=== PATIENT | female | born 1985 | race Caucasian/White ===

== ENCOUNTER 2017-04-14 15:31 | Inpatient (IN) | payer BC ==
[~2017-04-14] VITALS: Ht 152.4 cm; Wt 96.2 kg
[2017-04-14 15:42] VITALS: Ht 152.4 cm; Wt 96.2 kg
[2017-04-14 15:43] VITALS: BP 110/73
[2017-04-14] MEDS ORDERED: PREN1TAB17 PO (15:44)
--- NOTE | 2017-04-14 17:07 | RADRPT ---
PROCEDURE: US evaluation of placenta. CLINICAL INDICATION: Vaginal bleeding. TECHNIQUE: Multiple sonographic images of the gravid uterus were obtained utilizing perkins-scale jr ging. Sagittal and transverse images were obtained. The images were reviewed on a PACS workstation . The placenta was evaluated. COMPARISON: No prior studies are available for comparison. FINDINGS: There is a single live intrauterine . heart rate is 154 beats per minute. Position is cephalic and placenta is posterior grade III. There is no placenta previa or abruption. IMPRESSION: 1. Placenta is posterior grade III with no abruption or previa. RPTAT: QQ .Zane Wilkerson MD, MD Date Time Electronically viewed and signed by .Zane Wilkerson MD, on 04/14/2017 17:07 .R/
[2017-04-14 18:07] LABS: BASOPHILS % 0.4 % (0.0-2.0); EOSINOPHILS # 0.1 10^3/ul (0.0-0.5); EOSINOPHILS % 0.8 % (0.0-7.0); HEMATOCRIT 32.2 % (37.0-47.0); HEMOGLOBIN 11.3 g/dl (12.0-16.0); LYMPHOCYTES # 1.6 10^3/ul (0.8-2.9); LYMPHOCYTES % 15.6 % (15.0-51.0); MEAN CORPUSCULAR HEMOGLOBIN 29.6 pg (29.0-33.0); MEAN CORPUSCULAR HGB CONC 35.1 g/dl (32.0-37.0); MEAN CORPUSCULAR VOLUME 84.3 fl (82.0-101.0); MEAN PLATELET VOLUME 11.7 fl (7.4-10.4); MONOCYTE # 0.7 10^3/ul (0.3-0.9); MONOCYTES % 7.2 % (0.0-11.0); NEUTROPHIL # 7.7 10^3/ul (1.6-7.5); PLATELET COUNT 144 10^3/UL (140-415); RED BLOOD COUNT 3.82 10^6/ul (4.20-5.40); RED CELL DISTRIBUTION WIDTH 15.1 % (11.5-14.5); WHITE BLOOD COUNT 10.2 10^3/ul (4.8-10.8)
[2017-04-14 18:57] LABS: ADD UMIC YES; UR ASCORBIC ACID NEGATIVE (NEGATIVE); UR BACTERIA MODERATE /HPF (NONE SEEN); UR BILIRUBIN (Dip) NEGATIVE (NEGATIVE); UR BLOOD (Dip) 3+ mg/dL (NEGATIVE); UR CLARITY CLEAR (CLEAR); UR COLOR YELLOW (YELLOW); UR GLUCOSE (Dip) NEGATIVE (NEGATIVE); UR KETONES (Dip) NEGATIVE (NEGATIVE); UR LEUKOCYTE ESTERASE (Dip) NEGATIVE Leu/ul (NEGATIVE); UR NITRITE (Dip) NEGATIVE (NEGATIVE); UR RBC 4 /HPF (0-5); UR SPECIFIC GRAVITY (Dip) 1.008 (1.003-1.030); UR TOTAL PROTEIN (Dip) NEGATIVE (NEGATIVE); UR UROBILINOGEN (Dip) NEGATIVE (NEGATIVE)
--- NOTE | 2017-04-14 22:53 | TRIAGE ---
OB Triage Datetime Report Generated by CPN: 04/14/2017 22:53 Datetime: 04/14/2017 22:47 Assessment Type: Admission Assessment Vaginal Bleeding: None Maternal Assessment Level of Consciousness: Fully Conscious DTR's/Clonus: DTRs 2+; No Clonus Headache: Denies Blurred Vision: No Respiratory Effort: Unlabored; Regular Rhythm; Equal Expansion Breath Sounds, Left: Clear and Equal Breath Sounds, Right: Clear and Equal Nausea/Vomiting: Denies RUQ Epigastric Pain: Denies Facial Edema: None Fall Risk Assessment History of Falling: (0) No Secondary Diagnosis: (0) No Ambulatory Aid: (0) Bedrest/Nurse Assist Gait: (0) Normal/Bedrest/Immobile Mental Status: (0) Oriented to Own Ability Labor Evaluation Frequency: 5-6 Duration (sec)2399: 35-60 Quality: Mild Pattern: Normal: <= 5 Contractions in 10 Minutes Resting Tone Etta: Relaxed Pain Assessment Pain Scale: 1 Pain Presence: Intermittent Pain Type: N/A Pain Location: Abdomen Pain Goal: 2 Datetime: 04/14/2017 22:00 Labor Evaluation Frequency: 2-15 Monitor Mode: External Duration (sec)2399: 50-100 Quality: Mild Pattern: Normal: <= 5 Contractions in 10 Minutes Resting Tone Etta: Relaxed Heart Rate FHR Baseline Rate: 125 Monitor Mode: External US Variability: Moderate 6-25 bpm Accelerations: 15X15 Decelerations: None Category: Category I Pain Assessment Pain Scale: 2 Pain Presence: Intermittent Pain Type: Cramping Pain Location: Abdomen; Back Datetime: 04/14/2017 21:00 Labor Evaluation Frequency: 4-12 Monitor Mode: External Duration (sec)2399: 40-70 Quality: Mild Pattern: Normal: <= 5 Contractions in 10 Minutes Resting Tone Etta: Relaxed Heart Rate FHR Baseline Rate: 125 Monitor Mode: External US Variability: Moderate 6-25 bpm Accelerations: 15X15 Decelerations: None Category: Category I Datetime: 04/14/2017 20:24 Vaginal Exam Dilatation (cms): 0.0 Effacement (%): 0 Station: -4 Exam By: BE Vaginal Bleeding: None Cervix, Consistency: Firm Cervix, Position: Midposition Presentation 'A': Unable to Assess Datetime: 04/14/2017 20:00 Labor Evaluation Frequency: IRREGULAR Monitor Mode: External Duration (sec)2399: 40-60 Quality: Mild Pattern: Normal: <= 5 Contractions in 10 Minutes Resting Tone Etta: Relaxed Heart Rate FHR Baseline Rate: 135 Monitor Mode: External US Variability: Moderate 6-25 bpm Accelerations: 15X15 Decelerations: None Category: Category I Pain Assessment Pain Scale: 2 Pain Presence: Intermittent Pain Type: Cramping Pain Location: Abdomen; Back Datetime: 04/14/2017 18:49 Comments: PATIENT REGISTERED UNDER DR. CONWAY, IS DR PATEL PATIENT AND IS SCHEDULED ON 04/26 FOR REPEAT C/S - WILL CALL DR. CALERO Datetime: 04/14/2017 17:06 Stage of : OB Triage Heart Rate FHR Baseline Rate: 135 Monitor Mode: External US Variability: Moderate 6-25 bpm Accelerations: 15X15 Decelerations: None Category: Category I Datetime: 04/14/2017 16:29 Labor Evaluation Frequency: 1-4 Monitor Mode: External Duration (sec)2399: 30-60 Quality: Mild Pattern: Normal: <= 5 Contractions in 10 Minutes Resting Tone Etta: Relaxed Datetime: 04/14/2017 16:08 Stage of : OB Triage Labor Evaluation Frequency: 1-4 Monitor Mode: External Duration (sec)2399: 30-60 Pattern: Normal: <= 5 Contractions in 10 Minutes Resting Tone Etta: Relaxed Heart Rate FHR Baseline Rate: 135 Monitor Mode: External US Variability: Moderate 6-25 bpm Accelerations: 15X15 Decelerations: None Category: Category I Pain Presence: None/Denies Pain Type: N/A Membrane Status: Intact Datetime: 04/14/2017 16:02 Vaginal Exam Dilatation (cms): 0.0 Datetime: 04/14/2017 15:47 Stage of : OB Triage Assessment Type: Triage Maternal Assessment Level of Consciousness: Fully Conscious DTR's/Clonus: DTRs 2+; No Clonus Headache: Denies Blurred Vision: No Respiratory Effort: Unlabored; Regular Rhythm; Equal Expansion Breath Sounds, Left: Clear and Equal Breath Sounds, Right: Clear and Equal Nausea/Vomiting: Denies RUQ Epigastric Pain: Denies Lower Extremities Edema: None Degree: None Upper Extremities Edema: None Degree: None Facial Edema: None Temperature Route: Oral Fall Risk Assessment History of Falling: (0) No Secondary Diagnosis: (0) No Ambulatory Aid: (0) Bedrest/Nurse Assist IV Therapy: (0) No Gait: (0) Normal/Bedrest/Immobile Mental Status: (0) Oriented to Own Ability Fall Score: 0 Fall Risk Score Definition: No Risk: No action required Monitor Mode: External Duration (sec)2399: X1 Intensity IUP (mmHg): 30-40 Resting Tone Etta: Relaxed Heart Rate FHR Baseline Rate: 125 Monitor Mode: External US Variability: Moderate 6-25 bpm Accelerations: 15X15 Decelerations: None Category: Category I Pain Assessment Pain Scale: 0 Pain Presence: None/Denies Pain Type: N/A Datetime: 04/14/2017 15:46 Time of Arrival: 04/14/2017 22:20 EGA: 37.4 Arrived By: Ambulatory Arrived From: Home Chief Complaint: C/O SPOTTING STARTED AT 1300 TODAY Movement: Present Contractions: Denies/Absent Rupture of Membranes: Denies Vaginal Bleeding: Scant Vaginal Discharge: Present Recent Sexual Intercouse: Denies Abdominal Trauma: Not Applicable Patient Complaints: Other Time Provider Notified: 04/14/2017 16:14 Provider Notified: DR. CONWAY Initial Plan: [email or web address], CALL
[2017-04-14] MEDS ORDERED: CEFAZOLIN 2 GM/50 ML (PMX) 50 ML IV SCH (23:30)
[2017-04-14] MEDS ORDERED: OXYTOCIN 30 UNITS/LR 500 ML IV SCH (23:30)
[2017-04-14] MEDS ORDERED: OXYTOCIN 30 UNITS/LR 500 ML IV PRN (23:30)
[2017-04-14] MEDS ORDERED: MISOPROSTOL 200 MCG TAB PR PRN (23:30)
[2017-04-14] MEDS ORDERED: CARBOPROST 250 MCG INJ IM PRN (23:30)
[2017-04-14] MEDS ORDERED: METHYLERGONOVINE 0.2 MG INJ IM PRN (23:30)
[2017-04-14 23:41] LABS: INR 0.98
[2017-04-14 23:42] LABS: PARTIAL THROMBOPLASTIN TIME 26.7 Sec (25.0-35.0)
[2017-04-15] MEDS ORDERED: LACTATED RINGER'S 1,000 ML IV SCH
[2017-04-15] MEDS ORDERED: LACTATED RINGER'S 1,000 ML IV ONE
[2017-04-15] MEDS ORDERED: PHENYLephrine (100 MCG/ML) 5ML SYG ONE ×2 (00:20→00:44)
[2017-04-15] MEDS ORDERED: morphine SULFATE/PF (10 MG/10 ML) INJ ONE (00:20)
--- NOTE | 2017-04-15 01:36 | SIPON ---
Date/Time of Note Date/Time of Note DATE: 04/15/17 TIME: 01:33 Operative Report Preoperative Diagnosis 32 yo iup at 37 wks 5 days ga, in labor, previous CD X 3, desires elective repeat CD with permanent surgical sterilization Postoperative Diagnosis malpresent/ footling breech Operation/Procedure Performed repeat low transverse CD, bilateral tubal ligation, myomectomy Surgeon see signature line assistant sales director Dr. Oconnor Anesthesia: spinal Estimated blood loss: other (500) Transfusion Required none Specimen portion of right and left fallopian tube uterine fibroid Grafts/Implants none Complications none FABBY DE GUZMAN MD Apr 15, 2017 01:36
[2017-04-15] MEDS ORDERED: NALOXONE (0.4 MG/ML) INJ IV PRN (02:00)
[2017-04-15] MEDS ORDERED: CARBOPROST 250 MCG INJ IM PRN (02:00)
[2017-04-15] MEDS ORDERED: HYDROmorphONE 0.5 MG/0.5 ML SYG IV PRN ×2 (02:00)
[2017-04-15] MEDS ORDERED: MISOPROSTOL 200 MCG TAB PR PRN (02:00)
[2017-04-15] MEDS ORDERED: METHYLERGONOVINE 0.2 MG INJ IM PRN (02:00)
[2017-04-15] MEDS ORDERED: OXYTOCIN 30 UNITS/LR 500 ML IV PRN (02:00)
[2017-04-15] MEDS ORDERED: LANOLIN 7 GM TUBE TOP PRN (02:00)
[2017-04-15] MEDS ORDERED: METOCLOPRAMIDE 10 MG INJ IV PRN (02:00)
[2017-04-15] MEDS ORDERED: FENTAnyl 50 MCG/ML VIAL IV PRN ×2 (02:00)
[2017-04-15] MEDS ORDERED: KETOROLAC 30 MG INJ IV PRN (02:00)
[2017-04-15] MEDS ORDERED: DIPHENHYDRAMINE 50 MG INJ IV PRN ×2 (02:00)
[2017-04-15] MEDS ORDERED: ONDANSETRON 4 MG INJ IV PRN ×2 (02:00)
[2017-04-15] MEDS ORDERED: MEPERIDINE 25 MG INJ IV PRN (02:00)
[2017-04-15] MEDS ORDERED: OXYCODONE/ACETAMINOPHEN (5/325) TAB PO PRN ×2 (02:00)
[2017-04-15] MEDS: LACTATED RINGER'S 1,000 ML IV SCH ×4 (02:30→21:51)
[2017-04-15] MEDS: CEFAZOLIN 2 GM/50 ML (PMX) 50 ML IV SCH ×3 (02:32→17:14)
--- NOTE | 2017-04-15 03:08 | PREOPHP ---
DATE OF ADMISSION: 04/14/2017 HISTORY OF PRESENT ILLNESS: Ms. Gracy Hill is a 32-year-old 4, para 3, EDC 05/01/2017 i ntrauterine at 37 weeks and 5 days' gestational age presented to triage complaining of vag inal spotting and contractions. She had a significant history of x3 previous and desires elective repeat delivery with bilateral tubal sterilization. [facility] care took place at [facility]. PAST MEDICAL HISTORY: None. MEDICATIONS: vitamins. PAST SURGICAL HISTORY: Times 3 previous C-sections. OBSTETRICAL HISTORY: Times 3 C-sections. The patient tested positive for Down syndrome in the mate rna serum alphafetoprotein in the first trimester with positive history of fibroid uterus. GYNECOLOGIC HISTORY: Twelve, regular, 3 to 4 days. Denies any sexually transmitted diseases. Sexu ally active with 1 partner. SOCIAL HISTORY: Denies any smoking, drugs or alcohol. FAMILY HISTORY: None. REVIEW OF SYSTEMS: All within normal except history of present illness. PHYSICAL EXAMINATION: HEENT: Within normal. LUNGS: CTA bilateral. CARDIOVASCULAR: S1, S2, regular rhythm. ABDOMEN: Gravid, nontender. Mild lower abdominal tenderness. Negative CVA. EXTREMITIES: Negative edema. No calf tenderness. PELVIC: Vaginal exam 150, -3 with positive spotting. heart tracing category 1. Tocometer re gular contractions. ASSESSMENT: A 32-year-old 4, para 3, intrauterine at 37 weeks and 5 days' gestati onal age, in labor. Previous section x3, desires elective repeat delivery with bi lateral tubal sterilization. PLAN: Consent for repeat delivery with bilateral tubal ligation. Risks, benefits and alte rnatives explained. All questions were answered. Dictated By: FABBY MCGREGOR/ILA Conf#: [id number] DID#: [id number]
[2017-04-15 04:25] VITALS: BP 124/64; PULSE 80; RESP 19
[2017-04-15] MEDS: KETOROLAC 30 MG INJ IV PRN ×3 (04:25→17:58)
[2017-04-15] MEDS ORDERED: IBUPROFEN 600 MG TAB PO SCH (06:00)
[2017-04-15] MEDS ORDERED: OXYTOCIN 30 UNITS/LR 500 ML BAG IV ONE (07:00)
[2017-04-15 07:30] VITALS: BP 125/68; PULSE 82; RESP 18
[2017-04-15] MEDS: SENNA/DOCUSATE NA (8.6MG/50MG) TAB PO SCH ×2 (08:43→21:01)
--- NOTE | 2017-04-15 13:03 | OPR ---
DATE OF OPERATION: 04/15/2017 PREOPERATIVE DIAGNOSES: A 32-year-old 4, para 3, intrauterine at 37 weeks and 5 d ays gestational age, in labor, previous x3, desires elective repeat delivery with permanent surgical sterilization. POSTOPERATIVE DIAGNOSES: A 32-year-old 4, para 3, intrauterine at 37 weeks and 5 days gestational age, in labor, previous x3, desires elective repeat delivery wit h permanent surgical sterilization with malpresentation/footling breech with leiomyomatous sauk-[place]attle alvaro. PROCEDURE: Repeat low transverse delivery via Pfannenstiel incision with bilateral tubal l igation, Allie method, uterine myomectomy. SURGEON: Juan Luis Joy MD PROCESS SAFETY ENGINEER: Dr. Oconnor ANESTHESIA: Spinal. COMPLICATIONS: None. ESTIMATED BLOOD LOSS: 500 mL. FINDINGS: A viable male, Apgars 8 and 9 respectively at 1 and 5 minutes, weight 3565 grams, normal tubes and ovaries. A 3 cm intramural anterior fibroid in the lower uterine segment of the uterus. DESCRIPTION OF PROCEDURE: After explaining the risks, benefits and alternatives with the patient, c onsent signed in chart, the patient was taken to the operating room where spinal anesthesia was foun d to be adequate. She was then prepared and draped in normal sterile fashion in dorsal supine posit ion with a leftward tilt. A Pfannenstiel skin incision was then made with a scalpel and carried to the underlying layer of the fascia. The fascia was incised in the midline and the incision was exte nded laterally with Krishnamurthy scissors. The superior aspect of the fascial incision was then grasped wit h curved clamps, elevated and the underlying rectus muscles dissected off bluntly. Attention was th en turned to the inferior aspect of the incision which in similar fashion was grasped, tented up wit h curved clamps and the rectus muscles dissected off bluntly. The rectus muscles were in midline and the peritoneum identified, tented up and entered sharply with Metzenbaum scissors. The peritoneal incision was extended superiorly and inferiorly with good visualization of bladder. The bladder blade was then inserted and the vesicouterine peritoneum identified, grasped with pickups an d entered sharply with Metzenbaum scissors. This incision was extended laterally and the bladder fl ap created digitally. The bladder blade was then reinserted and the lower segment incised in transv erse fashion with a scalpel. The uterine incision was extended laterally. The bladder blade was re moved and the infant's feet were delivered to the level of the scapula, the right arm was draped acr oss the chest and delivered. Similarly, the left arm was draped across the chest and delivered. Th e head was delivered atraumatically. The nose and mouth were suctioned and cord clamped and cut. T he infant was handed off to awaiting vice president global digital marketing. The placenta was then removed. The uterus exter iorized and cleared of all clots and debris. At this point, the fibroid at the lower uterine segmen t was incised at the uterine incision site and sent to pathology. The uterine incision was then rep aired with 1-0 chromic in a running locked fashion. A second layer of same suture was used for imbr ication obtaining excellent hemostasis. At this point, a [place] clamp was used to grasp the left t ube approximately 4 cm from the cornual region. A 3 cm segment of tube was ligated with a free tie. Similarly, the right fallopian tube was ligated. The uterus was returned to the abdomen. The gut ters were cleared of all clots. Again, good hemostasis was noted from both tubal ligation sites. T he peritoneum and rectus abdominis muscles were reapproximated with 3-0 Vicryl. The fascia was reap proximated with 0 Vicryl in a running fashion. The subcutaneous tissue was reapproximated with 2-0 plain gut in a running fashion. The skin was closed with nathanael. The patient tolerated procedure well. Sponge, lap and needle counts were correct. The patient was taken to recovery room in stable condition. Dictated By: JUAN LUIS MCGREGOR/ILA Conf#: [id number] DID#: [id number]
[2017-04-15 16:00] VITALS: BP 113/62; PULSE 98; RESP 18
[2017-04-15 19:30] VITALS: BP 105/66; PULSE 94; RESP 18
[2017-04-16] MEDS: KETOROLAC 30 MG INJ IV PRN (00:55)
[2017-04-16 01:00] VITALS: BP 107/64; PULSE 92; RESP 18
[2017-04-16 03:30] VITALS: BP 119/62; PULSE 97; RESP 18
[2017-04-16] MEDS: IBUPROFEN 600 MG TAB PO SCH ×4 (05:57→23:56)
[2017-04-16 08:55] VITALS: BP 73/53; PULSE 121; RESP 18
[2017-04-16] MEDS: SENNA/DOCUSATE NA (8.6MG/50MG) TAB PO SCH ×2 (09:41→21:00)
[2017-04-16 11:22] VITALS: BP 120/69; PULSE 101; RESP 18
--- NOTE | 2017-04-16 11:25 | QN ---
Documentation Comment Patient was seen and evaluated awake alert oriented 3 negative complaints positive ambulation tired diet positive flatulence Vital signs stable afebrile Abdomen soft nontender uterine fundus firm below umbilicus dressing clean and dry Extremity negative edema no calf tenderness Assessment status post repeat transverse delivery with bilateral tubal ligation/myomectomy Postop day 1 stable afebrile Plan iron supplement Encourage ambulation FABBY DE GUZMAN MD Apr 16, 2017 11:25
--- NOTE | 2017-04-16 11:34 | CONS ---
Date/Time of Note Date/Time of Note DATE: 04/16/17 TIME: 11:32 Consultation Date/Type/Reason Admit Date/Time Apr 14, 2017 at 22:00 Initial Consult Date 04/16/17 Type of Consultation: Anesthesiology Reason for Consultation Follow up 24 HR Interval Summary Free Text/Dictation Pt seen and examined at bedside is POD#1 s/p repeat c/s with BTL. Pt received spinal duramorph for post op pain control. Currently states pain is controlled adequately. No N/V/D/C/[place]/Numbness in extremities. Will follow. Constitutional: improved, no complaints Exam/Review of Systems Vital Signs Vitals Vital Signs Date Time Temp Pulse Resp B/P Pulse Ox O2 Delivery O2 Flow Rate FiO2 04/16/17 11:22 97.9 101 18 120/69 Room Air 04/15/17 23:50 97 21 Intake and Output 04/15/17 04/15/17 04/16/17 15:00 23:00 07:00 Intake Total 1050 ml 425 ml Output Total 800 ml 2300 ml 1650 ml Balance 250 ml -1875 ml -1650 ml Results Result Diagram: 04/14/17 1700 Medications Medications Current Medications Lactated Ringer's (Lr) 1,000 ml @ 125 mls/hr Q8H IV Last administered on 04/15 21:51; Admin Dose 125 MLS/HR; Start 04/15/17 at 01:36 Oxycodone/ Acetaminophen (Percocet (5/ 325)) 1 tab Q4H PRN PO PAIN LEVEL 4-6; Start 04/15/17 at 02:00 Oxycodone/ Acetaminophen (Percocet (5/ 325)) 2 tab Q4H PRN PO PAIN LEVEL 7-10; Start 04/15/17 at 02:00 Simethicone (Mylicon) 160 mg Q8H PRN PO DISTENSION/GAS/BLOATING; Start at 02:00 Senna/Docusate Sodium 1 tab 1 tab BID PO Last administered on 04/16/17 09:41 ; Admin Dose 1 TAB; Start 04/15/17 at 09:00 Oxytocin/Lactated Ringer's 500 ml @ 0 mls/hr ONCE PRN IV For Hemorrhage Management; Start 04/15/17 at 02:00 Methylergonovine Maleate (Methergine) 0.2 mg ONCE PRN IM VAGINAL BLEEDING; Start 04/15/17 at 02:00 Carboprost Tromethamine (Hemabate) 250 mcg ONCE PRN IM VAGINAL BLEEDING; Start 04/15/17 at 02:00 Misoprostol (Cytotec) 1,000 mcg ONCE PRN [place] VAGINAL BLEEDING; Start 04/15/17 at 02:00 Ibuprofen (Motrin) 600 mg Q6 PO Last administered on 04/16/17t 11:22; Admin Dose 600 MG; Start 04/16/17 at 06:00 Ferrous Sulfate (Ferrous Sulfate (Ec)) 325 mg BID PO ; Start 04/16/17 at 21:00 ASHLEY MURPHY Apr 16, 2017 11:34
[2017-04-16 11:41] LABS: BASOPHILS % 0.3 % (0.0-2.0); EOSINOPHILS # 0.1 10^3/ul (0.0-0.5); HEMATOCRIT 27.2 % (37.0-47.0); HEMOGLOBIN 9.2 g/dl (12.0-16.0); LYMPHOCYTES # 1.1 10^3/ul (0.8-2.9); LYMPHOCYTES % 11.8 % (15.0-51.0); MEAN CORPUSCULAR HEMOGLOBIN 28.6 pg (29.0-33.0); MEAN CORPUSCULAR HGB CONC 33.8 g/dl (32.0-37.0); MEAN CORPUSCULAR VOLUME 84.5 fl (82.0-101.0); MEAN PLATELET VOLUME 11.6 fl (7.4-10.4); MONOCYTE # 0.6 10^3/ul (0.3-0.9); MONOCYTES % 6.9 % (0.0-11.0); NEUTROPHIL # 7.2 10^3/ul (1.6-7.5); PLATELET COUNT 142 10^3/UL (140-415); RED BLOOD COUNT 3.22 10^6/ul (4.20-5.40); RED CELL DISTRIBUTION WIDTH 15.6 % (11.5-14.5); WHITE BLOOD COUNT 9.1 10^3/ul (4.8-10.8)
[2017-04-16 16:30] VITALS: BP 111/66; PULSE 84; RESP 17
[2017-04-16 19:45] VITALS: BP 105/57; PULSE 88; RESP 18
[2017-04-16] MEDS: FERROUS SULFATE (EC) 325 MG TAB PO SCH (21:29)
[2017-04-17 03:50] VITALS: BP 111/65; PULSE 77; RESP 18
[2017-04-17] MEDS: IBUPROFEN 600 MG TAB PO SCH ×4 (06:00→23:35)
[2017-04-17 08:20] VITALS: BP 105/75; PULSE 82; RESP 18
[2017-04-17] MEDS: SENNA/DOCUSATE NA (8.6MG/50MG) TAB PO SCH ×2 (09:00→21:22)
[2017-04-17] MEDS: FERROUS SULFATE (EC) 325 MG TAB PO SCH ×2 (09:51→21:22)
[2017-04-17 16:15] VITALS: BP 106/62; PULSE 85; RESP 18
--- NOTE | 2017-04-17 20:58 | QN ---
Documentation Comment Patient was seen and evaluated awake alert oriented 3 negative complaints positive ambulation toleratin diet positive flatulence Vital signs stable afebrile Abdomen soft nontender uterine fundus firm below umbilicus c/d/i Extremity negative edema no calf tenderness Assessment status post repeat transverse delivery with bilateral tubal ligation/myomectomy Postop day 2 stable afebrile Plan iron supplement Encourage ambulation FABBY DE GUZMAN MD Apr 17, 2017 20:58
[2017-04-18 04:00] VITALS: BP 109/73; PULSE 77; RESP 20
[2017-04-18] MEDS: IBUPROFEN 600 MG TAB PO SCH ×4 (05:39→23:49)
[2017-04-18 08:00] VITALS: BP 113/60; PULSE 83; RESP 19
[2017-04-18] MEDS: FERROUS SULFATE (EC) 325 MG TAB PO SCH ×2 (08:59→20:34)
[2017-04-18] MEDS: SENNA/DOCUSATE NA (8.6MG/50MG) TAB PO SCH ×2 (09:00→20:34)
--- NOTE | 2017-04-18 11:36 | PD.PPDC ---
PROGRAM ADVISOR Discharge Instruction Condition Patient Condition: Good Diet Diet: Resume Regular Diet Activity/Restrictions Activity: Normal Activity May Shower Restrictions: No Exercising No Lifting No Driving No Sexual Activity Nothing in the Vagina No [employer] No Tampons, douche Follow-up Follow-up with Physician: 3, Day/Days Provider Information: to remove nathanael Return to clinic for ELECTRONICS PROCESSING SUPERVISOR Instructions: Fever greater than 101 Chills Worsening abdominal pain Excessive Vaginal Bleeding More than 2 pads per hour Unable to tolerate diet OB Instructions: Breast Tenderness Depression Blurried Vision Headache Surgical Instructions: Incisional Drainage Incisional Redness FABBY DE GUZMAN MD Apr 18, 2017 11:36
[2017-04-18 16:30] VITALS: BP 119/76; PULSE 78; RESP 18
[2017-04-18 19:50] VITALS: BP 117/71; PULSE 85; RESP 19
[2017-04-19 04:00] VITALS: BP 113/62; PULSE 76; RESP 18
[2017-04-19] MEDS: IBUPROFEN 600 MG TAB PO SCH ×2 (05:41→11:28)
--- NOTE | 2017-04-19 06:26 | DS ---
DATE OF ADMISSION: 04/14/2017 DATE OF DISCHARGE: 04/18/2017 PRIMARY DIAGNOSES: A 32-year-old 4, para 3, intrauterine at 37 weeks and 5 days g estational age, in labor, previous section x3, desires elective repeat delivery wi th permanent surgical sterilization. PROCEDURE: Repeat low transverse delivery with bilateral tubal ligation, Allie method an d uterine myomectomy. CONDITION ON DISCHARGE: Stable. ACTIVITY: None per vagina, no heavy lifting x6 weeks. DIET: Regular. MEDICATIONS ON DISCHARGE: 1. Motrin. 2. Percocet. 3. Iron. 4. Colace. DISCHARGE SUMMARY: Ms. Gracy Hill is a 32-year-old 4, para 4, status post repeat low tr ansverse delivery with bilateral tubal ligation and uterine myomectomy on 04/15/2017. She had a viable male, Apgars 8 and 9 respectively at one and five minutes, weight 3565 grams. She had an uneventful postop day 1, 2, and 3. Her incision is clean, dry and intact. She is ambulating, to lerating diet, positive flatulence, positive bowel movement. She will be discharged home today and follow up in the office this Friday to remove her nathanael. Dictated By: FABBY MCGREGOR/ILA Conf#: [id number] DID#: [id number]
[2017-04-19 08:30] VITALS: BP 119/73; PULSE 79; RESP 18
[2017-04-19] MEDS: SENNA/DOCUSATE NA (8.6MG/50MG) TAB PO SCH (09:00)
[2017-04-19] MEDS: FERROUS SULFATE (EC) 325 MG TAB PO SCH (09:42)
== END 2017-04-19 16:04 | disposition home or self-care (01) | DRG 765 ==
LOC: OBT 15:31 → L-D 15:32 → OBT 22:00 → L-D 22:00 → PP1 04-15 04:35
PROVIDERS: ADMIT Obstetrics & Gynecology; ATTEND Obstetrics & Gynecology
PROC: 0UL70ZZ Occlusion of Bilateral Fallopian Tubes, Open Approach (ICD-10-PCS; 2017-04-15)
PROC: 0UB90ZZ Excision of Uterus, Open Approach (ICD-10-PCS; 2017-04-15)
PROC: 3E0P3VZ Introduction of Hormone into Female Reproductive, Percutaneous Approach (ICD-10-PCS; 2017-04-15)
PROC: 10D00Z1 Extraction of Products of Conception, Low, Open Approach (ICD-10-PCS; principal; 2017-04-15 00:30)
DX: O34.211 Maternal care for low transverse scar from previous cesarean delivery (principal); Z68.41 Body mass index [BMI] 40.0-44.9, adult; O99.214 Obesity complicating childbirth; E66.01 Morbid (severe) obesity due to excess calories; O32.8XX0 Maternal care for other malpresentation of fetus, not applicable or unspecified; O34.13 Maternal care for benign tumor of corpus uteri, third trimester; Z30.2 Encounter for sterilization; Z3A.37 37 weeks gestation of pregnancy; Z37.0 Single live birth
CPT/HCPCS: 36415; 76815; 81001; 85025; 85610; 85730; 86592; 86850; 86900; 86901; 86920; 88305; 94760; 99464; G0463; J0690; J1885; J2210; J2274; J2370; J2590; J7120